=== PATIENT | male | born 1945 | race Caucasian/White ===

== ENCOUNTER 2024-12-08 14:23 | Inpatient (IN) ==
[2024-12-08 15:16] LABS: Basophils # (Auto) 0.01 K/mcL (0.00-0.30); Basophils % (Auto) 0.1 % (0.0-2.0); Eosinophils # (Auto) 0 K/mcL (0.00-0.70); Eosinophils % (Auto) 0 % (0.0-7.0); Hemoglobin 13.4 g/dL (13.7-17.5); Lymphocytes # (Auto) 0.51 K/mcL (1.50-4.80); Lymphocytes % (Auto) 3.6 % (15.5-49.0); Mean Cell Volume 92.9 fL (80.0-100.0); Mean Corpuscular HGB Conc 31.9 g/dL (31.0-36.0); Mean Platelet Volume 9.8 fL (8.8-12.5); Monocytes # (Auto) 0.87 K/mcL (0.10-0.90); Monocytes % (Auto) 6.2 % (1.0-12.0); Neutrophils % (Auto) 89.5 % (38.0-78.0); Platelet Count 216 K/mcL (140-440); RBC 4.52 M/mcL (4.63-6.08); Red Cell Distribution Width 13.7 % (11.5-14.5)
[2024-12-08] MEDS: IPRATROPIUM/ALBUTEROL 3 ML AMPUL.NEB NEB ONE ×2 (15:25→17:45)
[2024-12-08 15:41] LABS: Blood Urea Nitrogen 34 mg/dL (8-23); Calcium 9.1 mg/dL (8.6-10.4); Carbon Dioxide 28 mmol/L (22-30); Chloride 94 mmol/L (96-108); Glomerular Filtration Rate 81; Glucose 105 mg/dL (70-105); Potassium 4.3 mmol/L (3.3-5.1); Sodium 139 mmol/L (133-145)
[2024-12-08] MEDS: ASPIRIN 81 MG TAB.CHEW CHEWED ONE (16:25)
[2024-12-08] MEDS: cefTRIAXone 2 GM in DEXTROSE 5% IN WATER 50 ML IV ONE (16:30)
[2024-12-08] MEDS: FUROSEMIDE 20 MG/2 ML VIAL IV ONE ×2 (16:59→22:35)
[2024-12-08] MEDS: AZITHROMYCIN 500 MG in 0.9 % SODIUM CHLORIDE 250 ML IV ONE (16:59)
[2024-12-08] MEDS: methylPREDNISolone SOD SUCC 125 MG/2 ML VIAL IV ONE (18:11)
[2024-12-08] MEDS: LORazepam 2 MG/ML VIAL IV ONE (18:57)
[2024-12-08 19:11] LABS: Appearance,Urine Clear (Clear); Bilirubin,Urine Negative (Negative); Color,Urine Yellow; Glucose,Urine (UA) Negative (Negative); Ketones,Urine Negative (Negative); Leukocyte Esterase,Urine Negative /uL (Negative); Nitrate,Urine Negative (Negative); PH,Urine 5.5 (5.0-9.0); Protein,Urine Trace mg/dL (Negative); Urine Blood Trace-intact ery/mcL (Negative); Urine Hyaline Cast 20 /lph (0-2); Urine RBC 2 /hpf (0-3); Urine Squamous Epithelial Cell 0 /hpf (0-4); Urine WBC 2 /hpf (0-4); Urobilinogen,Urine Normal
[2024-12-08 20:12] LABS: C-Reactive Protein 7.95 mg/dL (0.03-0.80)
[2024-12-08] MEDS ORDERED: ONDANSETRON 4 MG/2 ML VIAL IV PRN (21:59)
[2024-12-08] MEDS ORDERED: POTASSIUM CHLORIDE 20 MEQ TABLET PO PRN ×2 (21:59)
[2024-12-08] MEDS ORDERED: POTASSIUM CHLORIDE 40 MEQ in DEXTROSE 5% IN WATER 500 ML IV PRN (21:59)
[2024-12-08] MEDS ORDERED: SENNOSIDES 1 TABLET PO PRN (21:59)
[2024-12-08] MEDS ORDERED: METOCLOPRAMIDE 10 MG/2 ML VIAL IV PRN (21:59)
[2024-12-08] MEDS ORDERED: POLYETHYLENE GLYCOL 3350 17 GM PACKET PO PRN (21:59)
[2024-12-08] MEDS ORDERED: MAGNESIUM SULFATE 2 GM/50 ML BAG IV PRN (21:59)
[2024-12-08] MEDS ORDERED: IPRATROPIUM/ALBUTEROL 3 ML AMPUL.NEB NEB PRN (21:59)
[2024-12-08] MEDS: 0.9 % SODIUM CHLORIDE 10 ML SYRINGE IV SCH (22:35)
[2024-12-08] MEDS: METOPROLOL TARTRATE 5 MG/5 ML VIAL IV PRN (22:42)
[2024-12-08] MEDS: BUDESONIDE 0.5 MG/2 ML AMPUL.NEB NEB SCH (23:15)
[2024-12-09 06:58] LABS: Basophils # (Auto) 0.01 K/mcL (0.00-0.30); Basophils % (Auto) 0.1 % (0.0-2.0); Eosinophils # (Auto) 0 K/mcL (0.00-0.70); Eosinophils % (Auto) 0 % (0.0-7.0); Hematocrit 38.6 % (40.1-51.0); Hemoglobin 12.2 g/dL (13.7-17.5); Lymphocytes # (Auto) 0.47 K/mcL (1.50-4.80); Lymphocytes % (Auto) 3.4 % (15.5-49.0); Mean Corpuscular HGB Conc 31.6 g/dL (31.0-36.0); Mean Platelet Volume 10.7 fL (8.8-12.5); Monocytes # (Auto) 0.29 K/mcL (0.10-0.90); Monocytes % (Auto) 2.1 % (1.0-12.0); Neutrophils % (Auto) 93.8 % (38.0-78.0); Platelet Count 230 K/mcL (140-440); RBC 4.15 M/mcL (4.63-6.08); Red Cell Distribution Width 13.6 % (11.5-14.5); WBC 13.9 K/mcL (4.5-11.0)
[2024-12-09 07:11] LABS: Thyroid Stimulating Hormone 2.46 uIU/mL (0.27-5.01)
[2024-12-09 08:00] LABS: ALT/SGPT 163 U/L (<40); AST/SGOT 98 U/L (<40); Albumin 3.9 gm/dL (3.2-5.2); Albumin/Globulin Ratio 1.4 (1.0-2.3); Alkaline Phosphatase 60 U/L (39-117); Bilirubin,Direct 0.3 mg/dL (<0.3); Bilirubin,Total 0.8 mg/dL (0.1-1.0); Blood Urea Nitrogen 41 mg/dL (8-23); Carbon Dioxide 25 mmol/L (22-30); Chloride 94 mmol/L (96-108); Globulin 2.7 gm/dL (2.2-3.7); Glomerular Filtration Rate 63; Glucose 151 mg/dL (70-105); Lactate Dehydrogenase 429 U/L (135-225); Phosphorous 4.9 mg/dL (2.5-4.5); Potassium 4.8 mmol/L (3.3-5.1); Sodium 137 mmol/L (133-145); Triglycerides 156 mg/dL (<150); Uric Acid 7.8 mg/dL (2.5-8.0)
[2024-12-09] MEDS: FUROSEMIDE 40 MG/4 ML VIAL IV SCH (08:27)
[2024-12-09] MEDS: ENOXAPARIN 40 MG/0.4 ML SYRINGE SQ SCH (08:27)
[2024-12-09] MEDS: LOSARTAN 50 MG TABLET PO SCH (08:27)
[2024-12-09] MEDS: APIXABAN 5 MG TABLET PO SCH (08:28)
[2024-12-09] MEDS: GABAPENTIN 300 MG CAPSULE PO SCH (08:28)
[2024-12-09] MEDS: CARVEDILOL 12.5 MG TABLET PO SCH (08:28)
[2024-12-09] MEDS: ATORVASTATIN 40 MG TABLET PO SCH (08:28)
[2024-12-09] MEDS: LORazepam 2 MG/ML VIAL IV PRN (08:44)
[2024-12-09] MEDS: cefTRIAXone 1 GM VIAL IV SCH (11:37)
[2024-12-09] MEDS: AZITHROMYCIN 500 MG in 0.9 % SODIUM CHLORIDE 250 ML IV SCH (11:38)
[2024-12-09] MEDS: TAMSULOSIN 0.4 MG CAPSULE PO SCH (20:05)
[2024-12-09] MEDS: traZODone HCL 50 MG TABLET PO SCH (20:05)
[2024-12-10 06:36] LABS: ALT/SGPT 205 U/L (<40); AST/SGOT 143 U/L (<40); Albumin 3.4 gm/dL (3.2-5.2); Albumin/Globulin Ratio 1.5 (1.0-2.3); Alkaline Phosphatase 67 U/L (39-117); Bilirubin,Direct 0.3 mg/dL (<0.3); Bilirubin,Total 0.6 mg/dL (0.1-1.0); Blood Urea Nitrogen 57 mg/dL (8-23); C-Reactive Protein 5.75 mg/dL (0.03-0.80); Calcium 8.6 mg/dL (8.6-10.4); Carbon Dioxide 25 mmol/L (22-30); Chloride 98 mmol/L (96-108); Globulin 2.3 gm/dL (2.2-3.7); Glomerular Filtration Rate 57; Glucose 157 mg/dL (70-105); Lactate Dehydrogenase 388 U/L (135-225); Phosphorous 5.6 mg/dL (2.5-4.5); Potassium 4.6 mmol/L (3.3-5.1); Sodium 139 mmol/L (133-145); Triglycerides 130 mg/dL (<150); Uric Acid 9.5 mg/dL (2.5-8.0)
[2024-12-10] MEDS ORDERED: LABETALOL HCL 20 MG/4 ML VIAL IV PRN (07:33)
[2024-12-10 09:17] LABS: Basophils # (Auto) 0.01 K/mcL (0.00-0.30); Basophils % (Auto) 0.1 % (0.0-2.0); Eosinophils # (Auto) 0 K/mcL (0.00-0.70); Eosinophils % (Auto) 0 % (0.0-7.0); Hematocrit 37.6 % (40.1-51.0); Hemoglobin 11.7 g/dL (13.7-17.5); Lymphocytes # (Auto) 0.39 K/mcL (1.50-4.80); Lymphocytes % (Auto) 2.3 % (15.5-49.0); Mean Cell Volume 93.8 fL (80.0-100.0); Mean Corpuscular HGB Conc 31.1 g/dL (31.0-36.0); Mean Platelet Volume 10.5 fL (8.8-12.5); Monocytes # (Auto) 0.68 K/mcL (0.10-0.90); Neutrophils % (Auto) 93.1 % (38.0-78.0); Platelet Count 208 K/mcL (140-440); RBC 4.01 M/mcL (4.63-6.08); Red Cell Distribution Width 13.9 % (11.5-14.5); WBC 17.2 K/mcL (4.5-11.0)
[2024-12-10] MEDS: LEVOTHYROXINE 100 MCG TABLET PO SCH (09:55)
[2024-12-10] MEDS: ACETAMINOPHEN 325 MG TABLET PO PRN (09:55)
[2024-12-10] MEDS: LOSARTAN 50 MG TABLET PO SCH (09:58)
[2024-12-10 10:37] LABS: Band Neutrophils % 2 % (0-10); Lymphocytes % 2 % (15-49); Monocytes % (Manual) 6 % (1-12); Nucleated Red Blood Cells 1 % (0-0); Ovalocytes OCC (None Seen); Platelet Estimate NORMAL (Normal); Polychromasia FEW (None Seen); RBC Morphology ABNORMAL (Normal); Segmented Neutrophils % 90 % (38-78)
[2024-12-10] MEDS: hydrOXYzine 25 MG TABLET PO PRN (13:41)
[2024-12-10] MEDS ORDERED: MELATONIN 3 MG TABLET PO SCH (19:00)
[2024-12-10] MEDS ORDERED: diphenhydrAMINE 25 MG CAPSULE PO PRN (21:00)
== END 2024-12-10 14:11 | disposition expired | DRG 189 ==
LOC: ED 14:23 → ICU 21:58
PROVIDERS: ADMIT Internal Medicine; ATTEND Internal Medicine